=== PATIENT | male | born 1995 | race African-American/Black ===

== ENCOUNTER 2021-01-11 14:28 | Emergency (ER) | payer OTHER ==
[~2021-01-11] VITALS: Ht 170.2 cm; Wt 75.0 kg
[2021-01-11 14:43] VITALS: BP 115/80
--- NOTE | 2021-01-11 15:20 | REP ---
INDICATION: trauma COMPARISON: None. TECHNIQUE: Three views right shoulder. FINDINGS: There is no evidence of acute fracture, dislocation, or intrinsic bone disease.The joint spaces are unremarkable. IMPRESSION: No fracture or dislocation. <Electronically signed by Henry Ford > 01/11/21 0848
[2021-01-11] MEDS ORDERED: IBUPROFEN 800 MG TAB PO ONE (16:05)
[2021-01-11] MEDS ORDERED: IBUP-1022 PO (16:10)
== END 2021-01-11 16:33 | disposition home or self-care (01) ==
LOC: M ED 14:28
DX: S43.101A Unspecified dislocation of right acromioclavicular joint, initial encounter (principal); W19.XXXA Unspecified fall, initial encounter; Y92.219 Unspecified school as the place of occurrence of the external cause; Y93.89 Activity, other specified; Y99.8 Other external cause status